=== PATIENT | female | born 1990 | race Caucasian/White ===

== ENCOUNTER 2017-10-16 15:38 | Emergency (ER) | payer SELFPAY ==
[~2017-10-16] VITALS: Ht 157.5 cm; Wt 78.9 kg
[2017-10-16 17:06] VITALS: BP 110/58
== END 2017-10-16 17:06 | disposition home or self-care (01) ==
LOC: ED 15:38
DX: F41.0 Panic disorder [episodic paroxysmal anxiety] (principal)

== ENCOUNTER 2018-06-11 21:46 | Emergency (ER) | payer MEDICAID ==
[~2018-06-11] VITALS: Ht 157.5 cm; Wt 73.0 kg
[2018-06-11 21:55] VITALS: Ht 157.5 cm; Wt 73.0 kg
[2018-06-11 23:47] VITALS: BP 131/78
== END 2018-06-11 23:47 | disposition home or self-care (01) ==
LOC: ED 21:46
DX: M79.651 Pain in right thigh (principal); I10 Essential (primary) hypertension; F41.9 Anxiety disorder, unspecified
CPT/HCPCS: J1885

== ENCOUNTER 2018-07-01 21:33 | Emergency (ER) | payer MEDICAID ==
[~2018-07-01] VITALS: Ht 157.5 cm; Wt 74.8 kg
[2018-07-01 21:39] VITALS: Ht 157.5 cm; Wt 74.8 kg
[2018-07-02 01:31] LABS: BASOPHIL % 0.5 % (0-2); PLATELET COUNT 338 x10^3mcL (130-400); RED CELL DISTRIBUTION WIDTH 13.9 % (11.5-14.5)
[2018-07-02 01:43] LABS: CALCIUM 8.4 mg/dL (8.5-10.1); CARBON DIOXIDE 29.7 mmol/L (21-32); CHLORIDE SERUM 103 mmol/L (98-107); CREATININE SERUM 0.6 mg/dL (0.6-1.0); GFR1 > 60 mL/min; GLUCOSE SERUM 90 mg/dL (74-106); POTASSIUM SERUM 3.6 mmol/L (3.5-5.1); SODIUM SERUM 140 mmol/L (136-145)
[2018-07-02 01:48] LABS: ALBUMIN 3.8 g/dL (3.4-5.0); ALKALINE PHOSPHATASE 77 U/L (46-116); ALT/SGPT 36 U/L (14-59); AST/SGOT 12 U/L (15-37); BILIRUBIN TOTAL 0.25 mg/dL (0.20-1.00)
[2018-07-02 02:21] LABS: microscopic required? YES; urine erythrocyte TRACE (NEGATIVE)
[2018-07-02 02:35] LABS: AMPHETAMINE QUAL UR NONE DETECTED (See below)
[2018-07-02 03:04] VITALS: BP 138/74
== END 2018-07-02 03:04 | disposition home or self-care (01) ==
LOC: ED 21:33
PROVIDERS: Emergency Medicine
DX: E83.51 Hypocalcemia (principal); F41.9 Anxiety disorder, unspecified
CPT/HCPCS: 36415

== ENCOUNTER 2018-08-07 07:47 | Emergency (ER) | payer MEDICAID ==
[~2018-08-07] VITALS: Ht 154.9 cm; Wt 76.2 kg
[2018-08-07 07:50] VITALS: Ht 154.9 cm; Wt 76.2 kg
[2018-08-07 09:00] LABS: CALCIUM 9.1 mg/dL (8.5-10.1); CHLORIDE SERUM 102 mmol/L (98-107); CREATININE SERUM 0.6 mg/dL (0.6-1.0); GFR1 > 60 mL/min; GLUCOSE SERUM 94 mg/dL (74-106); POTASSIUM SERUM 3.3 mmol/L (3.5-5.1); SODIUM SERUM 139 mmol/L (136-145)
[2018-08-07 09:02] LABS: BASOPHIL % 0.5 % (0-2); PLATELET COUNT 385 x10^3mcL (130-400); RED CELL DISTRIBUTION WIDTH 13.2 % (11.5-14.5)
[2018-08-07 09:04] LABS: ALBUMIN 4.1 g/dL (3.4-5.0); ALKALINE PHOSPHATASE 80 U/L (46-116); ALT/SGPT 42 U/L (14-59); AST/SGOT 11 U/L (15-37); BILIRUBIN TOTAL 0.35 mg/dL (0.20-1.00); LIPASE 169 IU/L (73-393)
[2018-08-07 09:09] LABS: TOTAL PROTEIN, SERUM 8.8 g/dL (6.4-8.2)
[2018-08-07 10:25] VITALS: BP 112/70
== END 2018-08-07 10:25 | disposition home or self-care (01) ==
LOC: ED 07:47
PROVIDERS: Emergency Medicine
DX: K29.00 Acute gastritis without bleeding (principal); F41.9 Anxiety disorder, unspecified
CPT/HCPCS: J2270; J3490; Q0162